=== PATIENT | female | born 1935 | race Caucasian/White ===

== ENCOUNTER 2016-12-23 14:47 | Emergency (ER) | payer OTHER ==
[2016-12-23] MEDS ORDERED: ATENOLOL50 MG PO (15:18)
[2016-12-23] MEDS ORDERED: CRESTOR5 MG PO (15:18)
[2016-12-23] MEDS ORDERED: BENICAR40 MG PO (15:21)
[2016-12-23] MEDS ORDERED: INDAPAMIDE2.5 MG PO (15:23)
[2016-12-23] MEDS ORDERED: [UNRECOGNIZED DRUG - CODE] PO (15:25)
[2016-12-23] MEDS ORDERED: VITAMIN D31000 UNI1 PO (15:26)
[2016-12-23] MEDS ORDERED: VAGIFEM10 MCG VA (15:34)
[2016-12-23] MEDS ORDERED: EC-NAPROSYN500 MG PO (15:37)
[2016-12-23 15:49] VITALS: BP 133/62
== END 2016-12-23 15:49 | disposition home or self-care (01) | DRG 566 ==
LOC: ED 14:47
DX: M25.462 Effusion, left knee (principal); I10 Essential (primary) hypertension; E78.5 Hyperlipidemia, unspecified